=== PATIENT | male | born 1950 | race Caucasian/White ===

== ENCOUNTER 2017-11-04 09:10 | Outpatient (CLI) | payer OTHER ==
[2017-11-04 10:33] LABS: #Basophils 0.1 thou/uL (0.0-0.2); #Eosinphils 0.3 thou/uL (0.0-0.7); #Lymphocytes 3.2 thou/uL (1.20-3.40); #Monocytes 0.6 thou/uL (0.11-0.59); #Neutrophils 4.7 thou/uL (1.40-6.50); %Basophils 0.7 % (0.0-1.0); %Eosinophils 3.3 % (0.0-10.0); %Lymphocytes 36.4 % (21.0-51.0); %Monocytes 6.4 % (0.0-10.0); %Neutrophils 53.2 % (42.0-75.0); Hemoglobin 16.5 g/dL (14.0-18.0); Mean Corpuscular HGB CONC 34.6 g/dL (32.0-36.0); Mean Corpuscular Volume 92.3 fl (80.0-94.0); Mean Platelet Volume 6.7 fL (7.4-10.4); Platelet Count 310 thou/uL (130-400); RBC Distribution Width 11.8 % (11.5-14.5); Red Blood Cell (RBC) Count 5.15 mill/uL (4.70-6.10); White Blood Cell (WBC) Count 8.7 thou/uL (4.8-10.8)
[2017-11-04 10:53] LABS: Anion Gap 11 mmol/L (10-20); BUN (Urea Nitrogen) 12 mg/dL (8.4-25.7); Calc. Creatinine Clearance 0 mL/min (70-130); Calcium 9.9 mg/dL (7.8-10.44); Carbon Dioxide 27 mmol/L (23-31); Chloride 105 mmol/L (98-107); Estimated GFR-MDRD 86; Glucose 93 mg/dL (80-115); Sodium 139 mmol/L (136-145)
== END 2017-11-04 09:11 | disposition home or self-care (01) ==
LOC: LABBT 09:10
PROVIDERS: ATTEND Surgery
DX: Z01.812 Encounter for preprocedural laboratory examination (principal); K64.9 Unspecified hemorrhoids
CPT/HCPCS: 80048; 85025; 93005; 93010

== ENCOUNTER 2017-11-08 06:20 | Day surgery (SDC) | payer OTHER ==
[2017-11-04 09:35] VITALS: BMI 29.0
[2017-11-08] MEDS ORDERED: cefOXitin 2 GM, Syringe 1 ML in Sterile Water 10 ML SLOW IVP SCH (07:00)
[2017-11-08] MEDS ORDERED: Lidocaine 2% 10 ML INJ ONE (08:30)
[2017-11-08] MEDS ORDERED: Lidocaine 2% Jelly 5 ML TUBE ONE (08:30)
[2017-11-08] MEDS ORDERED: Bupivacaine/Epinephrine 0.25% 30 ML VIAL ONE (08:30)
[2017-11-08] MEDS ORDERED: Fentanyl 100 MCG/2 ML VIAL ONE ×2 (08:32→10:54)
[2017-11-08] MEDS ORDERED: HYDROmorphone 0.5 MG/0.5 ML SYRINGE ONE (08:32)
[2017-11-08] MEDS ORDERED: Ondansetron HCl/PF 4 MG/2 ML Vial ONE ×2 (09:14→13:49)
[2017-11-08] MEDS ORDERED: PROPOFOL 200 MG/20 ML VIAL ONE (13:49)
[2017-11-08] MEDS ORDERED: Ketorolac Tromethamine 30 MG/ML VIAL ONE (13:49)
[2017-11-08] MEDS ORDERED: Dexamethasone 20 MG/5 ML VIAL ONE (13:49)
[2017-11-08] MEDS ORDERED: Lidocaine 1% PF 5 ML VIAL ONE (13:49)
[2017-11-08] MEDS ORDERED: Succinylcholine Chloride 20 MG/ML 10 ml SYRINGE FS ONE (13:49)
[2017-11-08] MEDS ORDERED: Glycopyrrolate 0.2 MG/ML 5 ML SYRINGE ONE (13:49)
--- NOTE | 2017-11-09 13:37 | OP ---
DATE OF SURGERY: 11/08/2017 PREOPERATIVE DIAGNOSIS: Internal prolapsing hemorrhoids. POSTOPERATIVE DIAGNOSIS: Internal prolapsing hemorrhoids. PROCEDURE: PPH stapled hemorrhoidectomy by Dr. Edmondson without complication. ANESTHESIA: General. ESTIMATED BLOOD LOSS: Minimal. COMPLICATIONS: None. INDICATION: The patient is a 66-year-old who presents with prolapsing internal hemorrhoids that are bleeding. He underwent mechanical bowel prep. Risks and benefits of surgery were discussed. He gav e consent. TECHNIQUE: The patient was taken to the operating room and placed supine on the table. After genera l anesthetic was obtained, he was placed in the prone position and his buttocks was taped open. The perineum and perianal region was prepped and draped in a sterile fashion. The obturator for the stap ler is placed and sewn in place and the sphincter protecting device is sewn in place. A pursestring of Prolene is placed 3 cm above the dentate line. The PPH stapler was opened to its fullest extent a nd the anvil placed above this pursestring. The pursestring was tied down loosely and the two ends o f the suture brought through the stapler. The stapler is tightened down into the green zone and fire d. Two good rings of tissue were obtained. A few bleeders on the staple line were oversewn using Vi cryl suture. There was no damage to the sphincter complex. There was no residual external prolapsin g skin. Gelfoam and lidocaine jelly were packed in the anal canal. Patient was en route to recovery in stable condition. All instrument counts, needle counts, lap counts were correct.
== END 2017-11-08 12:38 | disposition home or self-care (01) ==
LOC: SDC 06:20
PROVIDERS: ATTEND Surgery
PROC: 06BY0ZC Excision of Hemorrhoidal Plexus, Open Approach (ICD-10-PCS; principal; 2017-11-08)
DX: K64.8 Other hemorrhoids (principal); J45.909 Unspecified asthma, uncomplicated; I10 Essential (primary) hypertension; E78.1 Pure hyperglyceridemia; F17.210 Nicotine dependence, cigarettes, uncomplicated; M54.32 Sciatica, left side; F32.9 Major depressive disorder, single episode, unspecified; Z79.51 Long term (current) use of inhaled steroids; Z79.899 Other long term (current) drug therapy; Z98.890 Other specified postprocedural states
CPT/HCPCS: 88304; A4216; J0131; J0694; J1100; J1170; J1885; J2001; J2405; J2704; J3010

== ENCOUNTER 2021-01-16 07:17 | Outpatient (CLI) | payer MEDICARE, OTHER | END 2021-01-16 07:18 | disposition home or self-care (01) | LOC: BICCT 07:17 | PROVIDERS: ATTEND Family Medicine | DX: Z12.2 Encounter for screening for malignant neoplasm of respiratory organs (principal); F17.210 Nicotine dependence, cigarettes, uncomplicated; R91.8 Other nonspecific abnormal finding of lung field; J98.11 Atelectasis; I70.90 Unspecified atherosclerosis; I25.10 Atherosclerotic heart disease of native coronary artery without angina pectoris | CPT/HCPCS: 71271 ==

== ENCOUNTER 2021-02-06 08:49 | Outpatient (CLI) | payer MEDICARE, OTHER | END 2021-02-06 08:50 | disposition home or self-care (01) | LOC: PET 08:49 | PROVIDERS: ATTEND Family Medicine | DX: R91.1 Solitary pulmonary nodule (principal); R93.89 Abnormal findings on diagnostic imaging of other specified body structures; I70.90 Unspecified atherosclerosis; K57.90 Diverticulosis of intestine, part unspecified, without perforation or abscess without bleeding | CPT/HCPCS: 78815; A9552 ==

== ENCOUNTER 2021-08-19 07:20 | Outpatient (CLI) | payer MEDICARE, OTHER | END 2021-08-19 07:21 | disposition home or self-care (01) | LOC: BICCT 07:20 | PROVIDERS: ATTEND Family Medicine | DX: Z12.2 Encounter for screening for malignant neoplasm of respiratory organs (principal); F17.210 Nicotine dependence, cigarettes, uncomplicated; J44.9 Chronic obstructive pulmonary disease, unspecified; R91.8 Other nonspecific abnormal finding of lung field | CPT/HCPCS: 71271 ==

== ENCOUNTER 2022-01-18 07:34 | Outpatient (CLI) | payer MEDICARE, OTHER | END 2022-01-18 07:35 | disposition home or self-care (01) | LOC: BICCT 07:34 | PROVIDERS: ATTEND Family Medicine | DX: Z12.2 Encounter for screening for malignant neoplasm of respiratory organs (principal); F17.210 Nicotine dependence, cigarettes, uncomplicated; R91.8 Other nonspecific abnormal finding of lung field | CPT/HCPCS: 71271 ==

== ENCOUNTER 2023-01-18 09:11 | Outpatient (CLI) | payer MEDICARE, OTHER | END 2023-01-18 09:12 | disposition home or self-care (01) | LOC: BICCT 09:11 | PROVIDERS: ATTEND Family Medicine | DX: Z12.2 Encounter for screening for malignant neoplasm of respiratory organs (principal); R91.8 Other nonspecific abnormal finding of lung field; F17.218 Nicotine dependence, cigarettes, with other nicotine-induced disorders | CPT/HCPCS: 71271 ==

== ENCOUNTER 2024-09-21 08:11 | Outpatient (CLI) | payer MEDICARE, OTHER | END 2024-09-21 08:12 | disposition home or self-care (01) | LOC: BICCT 08:11 | PROVIDERS: ATTEND Family Medicine | DX: Z12.2 Encounter for screening for malignant neoplasm of respiratory organs (principal); F17.218 Nicotine dependence, cigarettes, with other nicotine-induced disorders; R91.1 Solitary pulmonary nodule; I70.0 Atherosclerosis of aorta | CPT/HCPCS: 71271 ==

== ENCOUNTER 2025-02-28 08:48 | Emergency (ER) | payer MEDICARE, OTHER ==
[2025-02-28] MEDS ORDERED: diphenhydrAMINE 50 MG/ML VIAL ONE (09:18)
[2025-02-28] MEDS ORDERED: Metoclopramide HCl 10 MG (2 mL) VIAL ONE (09:18)
[2025-02-28] MEDS ORDERED: Acetaminophen 500 MG TAB ONE (09:18)
[2025-02-28 10:01] LABS: #Basophils 0.06 10x3/uL (0.0-0.2); #Eosinophils 0.12 10x3/uL (0.0-0.7); #Monocytes 0.63 10x3/uL (0.11-0.59); #Neutrophils 6.39 10x3/uL (1.40-6.50); %Basophils 0.6 % (0.0-1.0); %Eosinophils 1.2 % (0.0-10.0); %Lymphocytes 25.5 % (21.0-51.0); %Monocytes 6.5 % (0.0-10.0); %Neutrophils 66.0 % (42.0-75.0); Hematocrit 39.0 % (42.0-52.0); Hemoglobin 13.4 g/dL (14.0-18.0); Mean Corpuscular Hemoglobin 33.6 pg (27.0-31.0); Mean Corpuscular Volume 97.7 fL (78.0-98.0); Platelet Count 271 10x3/uL (130-400); Red Blood Cell (RBC) Count 3.99 mill/uL (4.70-6.10); White Blood Cell (WBC) Count 9.69 10x3/uL (4.8-10.8)
[2025-02-28 10:15] LABS: ALT (SGPT) 21 U/L (Less than 45); AST (SGOT) 34 U/L (11-34); Albumin 3.4 g/dL (3.1-4.5); Alkaline Phosphatase 65 U/L (40-110); Anion Gap 13 mmol/L (10-20); BUN (Urea Nitrogen) 14 mg/dL (8.4-25.7); Bilirubin, Total 0.6 mg/dL (0.3-1.2); Calc. Creatinine Clearance 0 mL/min (70-130); Calcium 8.5 mg/dL (7.8-10.44); Carbon Dioxide 23 mmol/L (23-31); Chloride 103 mmol/L (98-107); Globulin 2.7 g/dL (2.4-3.5); Glucose 90 mg/dL (83-110); Potassium 4.4 mmol/L (3.5-5.1); Sodium 135 mmol/L (136-145)
[2025-02-28 10:42] LABS: Troponin I 0.010 ng/mL (< 0.028)
== END 2025-02-28 11:06 | disposition home or self-care (01) ==
LOC: ERS 08:48
DX: I10 Essential (primary) hypertension (principal)
CPT/HCPCS: 70450; 80053; 84484; 85025; 93005; J1200; J2765; 96374; 96375